=== PATIENT | male | born 1960 | race Caucasian/White ===

== ENCOUNTER 2023-11-08 18:07 | Day surgery (SDC) | payer OTHER, SELFPAY ==
--- NOTE | 2023-11-09 08:54 | FL_ITS ---
The [address] [address] Patient Name: INA SUAREZ MRN: [id number] date: 1960 Sex: M Assigned Patient Location: [facility] Current Patient Location: Accession/Order Number: [id number] Exam Date: 11/09/2023 09:00 Report Date: 11/09/2023 11:03 At the request of: JULES HAMMOND Procedure: FL hip inj RT EXAMINATION: FL hip inj RT, FL guided needle placement HISTORY: Chronic Right Hip Pain COMPARISON: No relevant comparison available. FLUOROSCOPY TIME: Fluoro time measures 2.2 and 3 images were obtained. TECHNIQUE: A joint injection was performed in the usual sterile manner after obtaining informed consent. Standard level fluoroscopic mode of operation utilized. FINDINGS: JOINT: Right hip. NEEDLE: 22 gauge, 5 spinal needle. MEDICATION: 4cc buffered 1% lidocaine for subcutaneous anesthesia 2cc Omnipaque-300 iodinated contrast to visualize the joint space Mixture of Kenalog 40 mg, 0.5% Bupivacaine 2 mL and Omnipaque 300 10mL was injected into the joint space. TECHNIQUE: Anterior approach with prior localization of the femoral artery. A single stick was successful in gaining access to the joint space. CLINICAL: 5 out of 10 pain before the injection. 2 out of 10 pain following the injection COMPLICATIONS: None. OTHER: Negative. FL/FL hip inj RT IMPRESSION: Technically successful right hip therapeutic arthrogram Electronically authenticated by: ISRAEL MERAZ Date: 11/09/2023 11:03
--- NOTE | 2023-11-09 08:54 | FL_ITS ---
The [address] [address] Patient Name: INA SUAREZ MRN: [id number] date: 1960 Sex: M Assigned Patient Location: [facility] Current Patient Location: Accession/Order Number: [id number] Exam Date: 11/09/2023 09:00 Report Date: 11/09/2023 11:03 At the request of: JULES HAMMOND Procedure: FL guided needle placement EXAMINATION: FL hip inj RT, FL guided needle placement HISTORY: Chronic Right Hip Pain COMPARISON: No relevant comparison available. FLUOROSCOPY TIME: Fluoro time measures 2.2 and 3 images were obtained. TECHNIQUE: A joint injection was performed in the usual sterile manner after obtaining informed consent. Standard level fluoroscopic mode of operation utilized. FINDINGS: JOINT: Right hip. NEEDLE: 22 gauge, 5 spinal needle. MEDICATION: 4cc buffered 1% lidocaine for subcutaneous anesthesia 2cc Omnipaque-300 iodinated contrast to visualize the joint space Mixture of Kenalog 40 mg, 0.5% Bupivacaine 2 mL and Omnipaque 300 10mL was injected into the joint space. TECHNIQUE: Anterior approach with prior localization of the femoral artery. A single stick was successful in gaining access to the joint space. CLINICAL: 5 out of 10 pain before the injection. 2 out of 10 pain following the injection COMPLICATIONS: None. OTHER: Negative. FL/FL guided needle placement IMPRESSION: Technically successful right hip therapeutic arthrogram Electronically authenticated by: ISRAEL MERAZ Date: 11/09/2023 11:03
[2023-11-09] MEDS: LIDOCAINE HCL 10 ML, SODIUM BICARBONATE 1 MEQ INJ (09:35)
[2023-11-09] MEDS: TRIAMCINOLONE ACETONIDE 40 MG/ML VIAL INJ (09:35)
[2023-11-09] MEDS: BUPIVACAINE HCL 0.5% PF 50 MG/10 ML VIAL 5 ML INJ (09:35)
--- NOTE | 2023-11-09 10:10 | SUR.PREOP ---
11/08 Instructed pt on procedure, date, time, and prep.
== END 2023-11-09 09:55 | disposition home or self-care (01) ==
PROVIDERS: Radiology Diagnostic Radiology; PCP Family Medicine; Visit Provider Family Medicine
DX: M16.11 Unilateral primary osteoarthritis, right hip (principal); G89.4 Chronic pain syndrome; M25.551 Pain in right hip
CPT/HCPCS: 20610; 77002; J0665; J3301; Q9967

== ENCOUNTER 2024-05-09 09:00 | Day surgery (SDC) | payer MEDICARE, SELFPAY ==
--- NOTE | 2024-05-09 09:12 | FL_ITS ---
The [address] [address] Patient Name: INA SUAREZ MRN: [id number] date: 1960 Sex: M [place]igned Patient [place]: [place] Current Patient Location[place] Accession/Order Number: [id number] Exam Date: 05/09/2024 09:40 Report Date: 05/09/2024 10:32 At the request of: SANTIAGO CHRISTINE Procedure: FL guided needle placement EXAMINATION: FL hip inj RT, FL guided needle placement HISTORY: Primary Osteoarthritis Of Right Hip FLUORO DOSE: ( Cannot be calculated) mGy Reference air kerma (Ka,r) COMPARISON: No relevant comparison available. TECHNIQUE: An arthrogram was performed under fluoroscopic guidance using non-ionic contrast material in the usual sterile manner after obtaining informed consent. Standard level fluoroscopic mode of operation utilized. FINDINGS: JOINT: Right hip NEEDLE: 25 gauge, 3.5 spinal needle. MEDICATION: 2 mL buffered 1% lidocaine for subcutaneous anesthesia. 2 mL Omnipaque-300 iodinated contrast to visualize the joint space. 40 mg Kenalog, 2 mL 0.5% bupivacaine, and 3 mL Omnipaque 300 injected into the joint space. TECHNIQUE: Anterior approach with prior localization of the femoral artery. A single stick was successful in gaining access to the joint space. CLINICAL: Improvement of joint pain post injection. COMPLICATIONS: None. OTHER: Negative. FL/FL guided needle placement IMPRESSION: 1. Successful right hip injection with decreased joint pain post injection. Electronically authenticated by: JENELLE CORONADO Date: 05/09/2024 10:32
--- NOTE | 2024-05-09 09:12 | FL_ITS ---
The [address] [address] Patient Name: INA SUAREZ MRN: [id number] date: 1960 Sex: M Assigned Patient Location: [place] Current Patient Location: [place] Accession/Order Number: [id number] Exam Date: 05/09/2024 09:40 Report Date: 05/09/2024 10:32 At the request of: SANTIAGO CHRISTINE Procedure: FL hip inj RT EXAMINATION: FL hip inj RT, FL guided needle placement HISTORY: Primary Osteoarthritis Of Right Hip FLUORO DOSE: ( Cannot be calculated) mGy Reference air kerma (Ka,r) COMPARISON: No relevant comparison available. TECHNIQUE: An arthrogram was performed under fluoroscopic guidance using non-ionic contrast material in the usual sterile manner after obtaining informed consent. Standard level fluoroscopic mode of operation utilized. FINDINGS: JOINT: Right hip NEEDLE: 25 gauge, 3.5 spinal needle. MEDICATION: 2 mL buffered 1% lidocaine for subcutaneous anesthesia. 2 mL Omnipaque-300 iodinated contrast to visualize the joint space. 40 mg Kenalog, 2 mL 0.5% bupivacaine, and 3 mL Omnipaque 300 injected into the joint space. TECHNIQUE: Anterior approach with prior localization of the femoral artery. A single stick was successful in gaining access to the joint space. CLINICAL: Improvement of joint pain post injection. COMPLICATIONS: None. OTHER: Negative. FL/FL hip inj RT IMPRESSION: 1. Successful right hip injection with decreased joint pain post injection. Electronically authenticated by: JENELLE CORONADO Date: 05/09/2024 10:32
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
[2024-05-09] MEDS: LIDOCAINE HCL 10 ML, SODIUM BICARBONATE 1 MEQ INJ (09:50)
[2024-05-09] MEDS: BUPIVACAINE HCL 0.5% PF 50 MG/10 ML VIAL 2 ML INJ (09:50)
[2024-05-09] MEDS: TRIAMCINOLONE ACETONIDE 40 MG/ML VIAL INJ (09:50)
--- NOTE | 2024-05-09 11:22 | SUR.PREOP ---
05/08/24 Pt instructed on procedure, date, time, and prep.
--- NOTE | 2024-05-09 11:44 | PC.NURSE ---
1015 with d/c instructions pt made aware to keep area dry with bandaid and monitor camacho and prn site of injection for s/sx of infection due to area of excoriation.
== END 2024-05-09 10:15 | disposition home or self-care (01) ==
LOC: FL 09:06
PROVIDERS: Radiology Diagnostic Radiology; PCP Family Medicine; Visit Provider Nurse Practitioner Family
DX: M16.11 Unilateral primary osteoarthritis, right hip (principal); M25.551 Pain in right hip
CPT/HCPCS: 20610; 77002; J0665; J3301; Q9967

== ENCOUNTER 2024-10-19 20:26 | Emergency (ER) | payer MEDICARE, SELFPAY ==
[2024-10-19 20:31] VITALS: BP 171/99; PULSE 75; TEMP 36.9; O2SAT 97; BMI 39.5
[2024-10-19] MEDS: ADACEL DIPH,PERTUSS(ACELL),TET VAC/PF 0.5 ML ADULT SYRINGE IM (20:57)
[2024-10-19] MEDS: LIDOCAINE/EPINEPHRINE/TETRACAINE 3 ML GEL.PF.APP TOPICAL (20:59)
--- NOTE | 2024-10-19 21:16 | ED.GENADUL1 ---
HPI HPI - General Adult General Chief complaint: Extremity Injury, Upper Stated complaint: UE INJURY Time Seen by Provider: 10/19/24 20:30 Source: patient Mode of arrival: walk-in Limitations: no limitations History of Present Illness HPI narrative: 64-year-old male presents here with chief complaint of a laceration to the distal aspect of his left index finger. He was cutting a piece of cabbage excellently cut his finger. States he cannot get it to quit bleeding. No other injuries. Patient has a superficial 2 cm laceration across the distal fat pad. Related Data Home Medications ?Medication ?Instructions ?Recorded ?Confirmed allopurinol 300 mg tablet 300 mg PO DAILY 11/08/23 05/09/24 atorvastatin 80 mg tablet 80 mg PO DAILY 11/08/23 05/09/24 latanoprost 0.005 % eye drops 1 drp ophthalmic (eye) QPM 11/08/23 05/09/24 multivitamin 1 tab PO DAILY 11/08/23 05/09/24 paroxetine HCl 20 mg tablet 20 mg PO DAILY 11/08/23 05/09/24 tramadol 100 mg tablet 100 mg PO BID PRN pain 11/08/23 05/09/24 losartan 100 1 tab PO DAILY 05/08/24 05/09/24 mg-hydrochlorothiazide 12.5 mg tablet nabumetone 1,000 mg tablet 1,500 mg PO DAILY 05/08/24 05/09/24 ibuprofen 600 mg tablet 600 mg PO TID PRN pain 05/09/24 05/09/24 Allergies Allergy/AdvReac Type Severity Reaction Status Date / Time azithromycin Allergy rash Verified 10/19/24 20:37 Opioid HPI Opioid Management Most Recent Opioid Data: Last Pain Scale 2 05/09/24 10:15 05/09/24 Review of Systems ROS Narrative All Systems are negative except as noted/marked.All systems reviewed and otherwise negative [facility] Medical History (Updated 10/19/24 @ 21:16 by Tonie Mccall) Prediabetes ?R73.03 - Prediabetes (ICD-10) Rotator cuff tear, left ?M75.102 - Unspecified rotator cuff tear or rupture of left shoulder, not specified as traumatic (ICD-10) High cholesterol ?E78.00 - Pure hypercholesterolemia, unspecified (ICD-10) Vitamin D deficiency ?E55.9 - Vitamin D deficiency, unspecified (ICD-10) Glaucoma ?H40.9 - Unspecified glaucoma (ICD-10) FAUSTINO (obstructive sleep apnea) ?G47.33 - Obstructive sleep apnea (adult) (pediatric) (ICD-10) Gout ?M10.9 - Gout, unspecified (ICD-10) Metabolic syndrome ?E88.810 - Metabolic syndrome (ICD-10) Diverticulosis ?K57.90 - Diverticulosis of intestine, part unspecified, without perforation or abscess without bleeding (ICD-10) HTN (hypertension) ?I10 - Essential (primary) hypertension (ICD-10) Drug dependence ?F19.20 - Other psychoactive substance dependence, uncomplicated (ICD-10) ETOH abuse ?F10.10 - Alcohol abuse, uncomplicated (ICD-10) Arthritis ?M19.90 - Unspecified osteoarthritis, unspecified site (ICD-10) Anxiety and depression ?F41.9 - Anxiety disorder, unspecified (ICD-10) ?F32.A - Depression, unspecified (ICD-10) Surgical History (Updated 11/08/23 @ 14:51 by Luz Kirk) H/O external ear surgery ?Z98.890 - Other specified postprocedural states (ICD-10) H/O colonoscopy ?Z98.890 - Other specified postprocedural states (ICD-10) History of carpal tunnel release of both wrists ?Z98.890 - Other specified postprocedural states (ICD-10) H/O arthroscopy of shoulder ?Z98.890 - Other specified postprocedural states (ICD-10) Social History Little interest or pleasure in doing things: not at all Feeling down, depressed, or hopeless: not at all Exam Narrative Exam Narrative: Nurses note and vital signs reviewed and patient is not hypoxic. General: The patient appears well and in no apparent distress. Patient is resting comfortably on cart. Skin: Warm, dry, no pallor noted. There is no rash noted. Head: Normocephalic, atraumatic Eye: Normal conjunctiva, no drainage, EOMI. PERRL Ears, Nose, Mouth, and Throat: oral mucosa is moist. Nares patent. Mouth without vesicles. Ear canals patent. Tm's without Erythema Musculoskeletal: 2cm left index finger laceration, suprerficial bleeding controlled, Psychiatric: Cooperative Constitutional Vital Signs, click to edit/add: Last Vital Signs Temp 98.5 F 10/19/24 20:31 Pulse 75 10/19/24 20:31 Resp 18 10/19/24 20:31 BP 171/99 H 10/19/24 20:31 Pulse Ox 97 10/19/24 20:31 O2 Del Method Room Air 10/19/24 20:31 Course Vital Signs Vital signs: Vital Signs Temperature 98.5 F 10/19/24 20:31 Pulse Rate 75 10/19/24 20:31 Respiratory Rate 18 10/19/24 20:31 Blood Pressure 171/99 H 10/19/24 20:31 Pulse Oximetry 97 10/19/24 20:31 Oxygen Delivery Method Room Air 10/19/24 20:31 Temperature 98.5 F 10/19/24 20:31 Pulse Rate 75 10/19/24 20:31 Respiratory Rate 18 10/19/24 20:31 Blood Pressure 171/99 H 10/19/24 20:31 Pulse Oximetry 97 10/19/24 20:31 Oxygen Delivery Method Room Air 10/19/24 20:31 Medical Decision Making MDM Narrative Medical decision making narrative: Visual laceration across the distal aspect of left index finger. Wound anesthetized with let solution also to help with cauterizing and to help stop bleeding. Wound was cleaned with Hibiclens normal saline. Wound was then secured with Dermabond. Patient tolerated well. He will be discharged home after tetanus update. Patient stable discharged home with skin avulsion directions. Differential Diagnosis Differential Diagnosis: laceration Medical Records Medical records reviewed: Yes I reviewed the patient's medical records Discharge Plan Discharge Chief Complaint: Extremity Injury, Upper Clinical Impression: Finger laceration Patient Disposition: Home, Self-Care Time of Disposition Decision: 21:15 Condition: Good Prescriptions / Home Meds: No Action allopurinol 300 mg tablet 300 mg PO DAILY atorvastatin 80 mg tablet 80 mg PO DAILY latanoprost 0.005 % drops 1 drp ophthalmic (eye) QPM Rx Instructions: both eyes paroxetine HCl 20 mg tablet 20 mg PO DAILY tramadol 100 mg tablet 100 mg PO BID PRN (Reason: pain) multivitamin Tablet 1 tab PO DAILY losartan-hydrochlorothiazide 100-12.5 mg tablet 1 tab PO DAILY nabumetone 1,000 mg tablet 1,500 mg PO DAILY ibuprofen 600 mg tablet 600 mg PO TID PRN (Reason: pain) Print Language: [place] Instructions: Skin Adhesive Care (ED) Referrals: JULES HAMMOND [Primary Care Provider] - 1 week Discharge Date/Time: 10/19/24 21:39
== END 2024-10-19 21:39 | disposition home or self-care (01) ==
PROVIDERS: Emergency Provider Emergency Medicine; PCP Family Medicine
DX: S61.211A Laceration without foreign body of left index finger without damage to nail, initial encounter (principal); W26.0XXA Contact with knife, initial encounter; Z23 Encounter for immunization
CPT/HCPCS: 12001; 90471; 90715; 99284